=== PATIENT | female | born 1950 | race Caucasian/White ===

== ENCOUNTER 2021-03-23 14:09 | Emergency (ER) | payer MEDICARE, OTHER, SELFPAY ==
[2021-03-23] VITALS (17 sets, daily range): BP systolic 106–144; BP diastolic 56–95; PULSE 69–85; RESP 12–21; TEMP 36.7; O2SAT 93–100
--- NOTE | ~2021-03-23 | XR_ITS ---
EXAMINATION: XR chest 1V portable DATE: 03/23/2021 14:27 INDICATION: Shortness of breath. Patient for left pneumothorax. TECHNIQUE: frontal view of the chest was obtained. COMPARISON: None FINDINGS: Large left pneumothorax with complete collapse of the left lung and rightward shift of the heart and mediastinum consistent with tension pneumothorax. There is a hazy opacity at the inferior left hemith orax with obscuration of the costophrenic angle suggesting possibility of a small posteriorly layerin g pleural effusion component. Tiny right pleural effusion. No other right-sided airspace opacities or right-sided pneumothorax. Heart size is normal. Multiple tiny metallic coils in the epigastric regio n which could be related to prior hernia repair. IMPRESSION: 1. Large left tension pneumothorax with rightward shift of the heart and mediastinum. Dr. Bowling di scussed these findings with Dr. Cash at 2:28 PM. 2. Likely small bilateral pleural effusions, left greater than right. Reviewed, dictated and finalized at [facility]. IMPRESSION: 1. Large left tension pneumothorax with rightward shift of the heart and medias tinum. Dr. Bowling discussed these findings with Dr. Cash at 2:28 PM. 2. Likely small bilateral pleural effusions, left greater than right.
--- NOTE | ~2021-03-23 | XR_ITS ---
XR chest-chest tube insert/pos DATE: 03/23/2021 15:27 INDICATION: Left chest tube insertion for pneumothorax TECHNIQUE: Portable AP chest on 03/23/2021 at 1520 hours COMPARISON: 03/23/2021 portable AP chest at 1422 hours FINDINGS: Interval placement of left thoracostomy tube, the distal tip overlying left apex. There is partial reexpansion of the left lung with residual approximately 50% pneumothorax. There is pulmonary vascular congestion and redistribution on the right and prominence of minor fissur e suggesting subpleural edema. There is minimal if any pleural effusion. No right-sided pneumothorax. Heart size is normal. There is resolution of the rightward shift of the heart mediastinum since chest tube placement. IMPRESSION: Resolution of tension associated with left pneumothorax following chest tube insertion; a pproximately 50% residual pneumothorax on the left Right lung congestive changes Reviewed, dictated and finalized at [facility]. Reviewed, dictated and finalized at [facility]. IMPRESSION: Resolution of tension associated with left pneumothorax following c hest tube insertion; approximately 50% residual pneumothorax on the left Right lung congestive changes
[2021-03-23] MEDS: fentaNYL CITRATE INJ (*CRX) 100 MCG/2 ML VIAL 50 MCG IV PUSH (14:49)
[2021-03-23] MEDS: ONDANSETRON INJ 4 MG/2 ML VIAL IV PUSH (14:50)
[2021-03-23] MEDS: ceFAZolin SODIUM 1 GM VIAL IV PUSH (14:50)
[2021-03-23 14:53] LABS: Basophils Percent Auto 0.4 % (0.2-1.2); Eosinophils Absolute Auto 0.6 K/mm3 (0-0.3); Eosinophils Percent Auto 5.8 % (0-4.4); Hematocrit 34.8 % (37.0-47.0); Hemoglobin 9.7 g/dL (12.0-15.0); Immature Granulocyte Absolute 0.04 K/mm3 (0.00-0.031); Immature Granulocyte Percent A 0.4 % (0-0.5); Lymphocytes Absolute Auto 1.15 K/mm3 (0.9-3.2); Lymphocytes Percent Auto 11.7 % (18.3-44.2); Mean Corpuscular HGB Conc 27.9 g/dl (32-36); Mean Corpuscular Hemoglobin 22.6 pg (26-34); Mean Corpuscular Volume 80.9 fl (80-100); Mean Platelet Volume 9.8 fl (7.4-10.4); Monocytes Absolute Auto 0.7 K/mm3 (0.1-0.6); Monocytes Percent Auto 6.6 % (2.6-8.5); Neutrophils Absolute Auto 7.4 K/mm3 (1.3-6.7); Neutrophils Percent Auto 75.1 % (45.5-73.1); Platelet Count Result 503 k/mm3 (150-375); Red Cell Distribution Width 22.2 % (11.5-14.5); White Blood Count 9.8 K/mm3 (4.5-10.0)
[2021-03-23 15:14] LABS: INR 0.9; Prothrombin Time 12.2 Seconds (11.1-14.7)
[2021-03-23 15:15] LABS: Partial Thromboplastin Time 26.1 SECONDS (22.3-36.8)
[2021-03-23 15:20] LABS: Alanine Aminotransferase 14 U/L (4-35); Albumin Level 3.6 g/dL (3.5-5.1); Alkaline Phosphatase 62 U/L (38-126); Anion Gap 9 mmol/L (8-16); Aspartate Amino Transferase 21 U/L (14-36); Bilirubin,Total 0.3 mg/dL (0.2-1.3); Blood Urea Nitrogen 13 mg/dL (7-17); Calcium 9.2 mg/dL (8.4-10.2); Carbon Dioxide 31 mmol/L (22-30); Chloride 95 mmol/L (98-107); Estimated CRCL calculation 67 ml/min; Estimated Glomerular Filt Rate > 60; Glucose 109 mg/dL (65-110); Potassium 3.6 mmol/L (3.4-5.0); Sodium 135 mmol/L (137-145)
[2021-03-23 15:31] LABS: Hypochromasia 1+ (NORMAL); Platelet Estimate Increased (Adequate)
[2021-03-23 15:32] LABS: Anisocytosis 3+ (NORMAL)
--- NOTE | 2021-03-23 16:03 | ED.SOB ---
HPI - SOB/Dyspnea General Chief Complaint: Shortness of Breath/Dyspnea Stated Complaint: ?PNEUMOTHORAX Time Seen by Provider: 03/23/21 14:29 Source: patient, EMS and RN notes reviewed Mode of arrival: EMS Limitations: no limitations History of Present Illness HPI Narrative: This is a 70 year old female with history of diabetes mellitus, GERD , hiatal hernia s/p repair who presents from the nursing for her evaluation of left pneumothorax. PAtient reports shortness and pain with breathing since her surgery on March 04 at [facility]. She started requiring oxygen 4 days ago, and [facility] Her outside chest xray showed a large left pneumothorax with mediastinal shift. She denies falling, fever. She reports intermittent nausea and vomiting. She denies fever or chills. Related Data Allergies Allergy/AdvReac Type Severity Reaction Status Date / Time No Known Allergies Allergy Verified 03/23/21 14:16 Review of Systems Review of Systems: All systems reviewed & are unremarkable except as noted in HPI and below Constitutional: Constitutional: Denies chills and Denies fever(s) Cardiovascular: Cardiovascular: Reports chest pain Respiratory: Respiratory: Reports cough and Reports dyspnea Gastrointestinal: Gastrointestinal: Denies abdominal pain, Denies nausea and Denies vomiting PMF Past Medical History Medical History (Updated 03/24/21 @ 00:23 by Randa Cash MD) Diabetes mellitus GERD (gastroesophageal reflux disease) Hiatal hernia Surgical History Surgical History (Updated 03/24/21 @ 00:23 by Randa Cash MD) History of repair of hiatal hernia Social History Social History (Updated 03/24/21 @ 00:19 by Randa Cash MD) Smoking status: Never smoker Exam Const: General: no acute distress and alert Orientation/consciousness: patient oriented x3 Eyes: EOM: EOMs intact bilaterally Resp: Effort & Inspection: normal respiratory effort, not labored, no retractions and not tachypneic Auscultation: breath sounds absent on th left Cardio: Rate: regular rate Rhythm: regular rhythm Heart sounds: no murmurs GI: GI Palp: Yes Soft to palpation, No Tenderness to palpation present (GI) and No Guarding due to palpation present (GI) Auscultation: normal bowel sounds Other: healing laparoscopic incisions, intact, no erythema no drainage Skin: General skin exam: normal color Rashes: no rashes Neuro: General: patient oriented x3, moves all extremities and CN's II-XI intact bilaterally Psych: Mental Status: mental status grossly normal Affect: normal affect Course Reevaluation(s) Reevaluation #1: Darnelltieganga reports that she feels better after chest tube placement. She has increased expansion although not full expansion. She understands she will be transferred to [facility] to where hiatal hernia surgery was performed. Date: 03/24/21 Time: 17:00 Consultations Consultation #1: I spoke with DR. Moore with [facility] surgery regarding patient. She spoke with Dr. Ramos who accepts patient to service for treatment of her pneumothorax Date: 03/23/21 Time: 16:31 Vital Signs Vital signs: Vital Signs Temperature 98.1 F 03/23/21 14:15 Pulse Rate 80 03/23/21 14:15 Respiratory Rate 14 03/23/21 14:15 Blood Pressure 144/70 H 03/23/21 14:15 Pulse Oximetry 99 03/23/21 14:15 Temperature 98.1 F 03/23/21 14:15 Pulse Rate 70 03/23/21 21:47 Respiratory Rate 13 03/23/21 21:47 Blood Pressure 106/59 L 03/23/21 21:47 Pulse Oximetry 98 03/23/21 21:47 Procedures Chest Tube Chest Tube 1: Chest Tube Date: 03/23/21 Chest Tube Time: 15:20 Chest Tube Location: left, anterior axillary line and fourth interspace Tube Type: quik thal Size of Tube (cm): 16 Chest Tube Prep: Yes betadine prep and sterile drapes applied Anesthetic: lidocaine 1% Amount of anesthesia used (mL): 10 Procedure: seld
--- NOTE | 2021-03-23 16:08 | ECG_ITS ---
Measurements Intervals [place] Rate: 73 P: 83 AR: 122 QRS: 54 QRSD: 101 T: 89 QT: 412 QTc: 456 Interpretive Statements SINUS RHYTHM BORDERLINE T WAVE ABNORMALITY- HIGH LATERAL LEADS BASELINE ARTIFACT- II, III, AVR, AVF, V2-V6 BORDERLINE ECG Electronically Signed On 03-23-2021 21:42:31 CDT by Markus Mims D.O.
[2021-03-23] MEDS: WATER, STERILE FOR INJECTION 10 ML VIAL XX (16:16)
[2021-03-23 16:32] LABS: EDCOVIDSCREEN Negative (Negative)
--- NOTE | 2021-03-23 17:08 | PC.NURSE ---
[id number]-ATTEMPTED TO CALL LESTER SHEPHERD@ [phone] NO ANSWER
--- NOTE | 2021-03-23 17:11 | PC.NURSE ---
165-CONTACTED MARYBEL EUCEDA @[phone]-RECEIVED CONSENT TO TRANSFER PT TO [place]. MARYBEL ASKED IF WE WOULD CONTACT BRIGIDO BECERRA @[phone] WHO IS ANOTHER [employer] DIRECTOR TO LET HER KNOW. 1656 ATTEMPTED TO CONTACT BRIGIDO BECERRA,NO ANSWER ,LEFT MESSAGE TO RETURN CALL. 1708-BRIGIDO BECERRA RETURNED CALL AND AGAIN GAVE CONSENT TO TRANSFER.
--- NOTE | 2021-03-23 18:46 | PC.NURSE ---
chest tube and tubing connections are secured and on appropriate suction level. drainage amount is at 450mL at this time. pt is resting w/ call light in reach at this time.
--- NOTE | 2021-03-23 20:21 | PC.NURSE ---
called [facility] to request transport. ETA 15-20 minutes.
--- NOTE | 2021-03-23 20:28 | PC.NURSE ---
[facility] called with ETA update of [phone]
--- NOTE | 2021-03-23 21:27 | PC.NURSE ---
[facility] called with ETA update of [id number]
== END 2021-03-23 22:55 | disposition short-term general hospital (02) ==
PROVIDERS: Emergency Provider General Practice; PCP Pediatrics Neonatal-Perinatal Medicine
DX: J95.811 Postprocedural pneumothorax (principal); E11.9 Type 2 diabetes mellitus without complications; K21.9 Gastro-esophageal reflux disease without esophagitis; Z20.822 Contact with and (suspected) exposure to COVID-19; R94.31 Abnormal electrocardiogram [ECG] [EKG]; Z99.81 Dependence on supplemental oxygen; R06.02 Shortness of breath
CPT/HCPCS: 32551; 36415; 71045; 80053; 85025; 85610; 85730; 87426; 93005; 96365; 96375; 99291; C1729; C9803; J0131; J0690; J2405; J3010